=== PATIENT | female | born 1935 | race Caucasian/White ===

== ENCOUNTER → 2016-09-28 | Outpatient (CLI) | payer OTHER, BC ==
[~2016-09-28] MED LIST: AMLO2.5T PO; HYDR25TA4 PO; RMCI IV
[2016-10-02 15:33] LABS: QUANTIF TB AG-NIL <0.00 IU/ML; QUANTIFERON NIL 0.07 IU/ML
== END | disposition home or self-care (01) ==
LOC: C.LAB1850 11:31
PROVIDERS: ATTEND Registered Nurse
DX: K50.90 Crohn's disease, unspecified, without complications (principal)

== ENCOUNTER → 2016-12-13 | Outpatient (CLI) | payer OTHER, BC ==
--- NOTE | 2016-12-13 14:06 | DIAGNOSTIC IMAGING REPORT ---
TWO VIEW CHEST CLINICAL HISTORY: Dyspnea on exertion. FINDINGS: PA and lateral chest radiographs are compared to study dated 03/14/2013 and correlated with chest CT dated 12/03/2008. The heart is mildly enlarged and there is atherosclerotic calcification of the thoracic aorta. Emphysema and chronic interstitial thickening are similar to previous. Left basilar airspace opacities are typical for atelectasis. No airspace consolidation is seen to suggest pneumonia. Biapical scarring is observed. There is no pleural effusion or pneumothorax. The skeletal structures are osteopenic. The bony thorax appears intact. IMPRESSION: Cardiomegaly and emphysema with no active disease in the chest. Electronically signed by: Yong Turk M.D. 12/13/2016 2:04 PM Dictated Date/Time: 12/13/2016 2:03 PM
[2016-12-13 17:56] LABS: BASO % 0.3 %; BASO ABS # 0.03 K/uL (0-0.2); COMPLETE YES; EOS % 2.1 %; HEMATOCRIT 41.1 % (37-47); IG% 0.2 %; LYMPH % 40.8 %; LYMPH ABS # 3.77 K/uL (1.2-3.4); MEAN CELL VOLUME 87.1 fL (80-100); MEAN CORPUSCULAR HEMOGLOBIN 29.4 pg (25-34); MEAN CORPUSCULAR HGB CONC 33.8 g/dl (32-36); MEAN PLATELET VOLUME 10.5 fL (7.4-10.4); MONO % 7.8 %; NEUT % 48.8 %; PLATELET COUNT 211 K/uL (130-400); RED BLOOD COUNT 4.72 M/uL (4.2-5.4); WHITE BLOOD COUNT 9.23 K/uL (4.8-10.8)
[2016-12-13 18:10] LABS: ALT/SGPT 18 U/L (12-78); BLOOD UREA NITROGEN 22 mg/dl (7-18); BUN/CREATININE RATIO 23.6 (10-20); CARBON DIOXIDE 30 mmol/L (21-32); CHLORIDE 103 mmol/L (98-107); CREATININE 0.94 mg/dl (0.60-1.20); GLUCOSE 86 mg/dl (70-99); POTASSIUM 3.7 mmol/L (3.5-5.1); SODIUM 139 mmol/L (136-145)
[2016-12-13 18:13] LABS: ALB/GLOB RATIO 1.1 (0.9-2); ALKALINE PHOSPHATASE 64 U/L (45-117); AST/SGOT 19 U/L (15-37)
== END | disposition home or self-care (01) ==
LOC: C.LABPVFM 13:44
PROVIDERS: ATTEND Family Medicine
DX: R06.09 Other forms of dyspnea (principal); J43.9 Emphysema, unspecified

== ENCOUNTER → 2017-01-19 | Outpatient (CLI) | payer OTHER, BC ==
--- NOTE | 2017-01-19 14:56 | MAMMOGRAPHY REPORT ---
BILATERAL DIGITAL SCREENING MAMMOGRAM TOMOSYNTHESIS WITH CAD: 01/19/2017 CLINICAL HISTORY: Asymptomatic. Personal history of breast cancer. TECHNIQUE: Breast tomosynthesis in addition to standard 2D mammography was performed. Current study was also evaluated with a Computer Aided Detection (CAD) system. COMPARISON: Comparison is made to exams dated: 01/18/2016 mammogram, 01/13/2015 mammogram, 01/12/2014 mammogram, 01/09/2013 mammogram, 01/08/2012 mammogram, and 01/05/2011 mammogram - [facility]. BREAST COMPOSITION: The tissue of both breasts is heterogeneously dense, which may obscure small ma sses. FINDINGS: No suspicious masses, calcifications, or areas of architectural distortion are noted in e ither breast. There has been no significant interval change compared to prior exams. There are stab le post surgical changes in the right upper outer quadrant, including stable density and architectur al distortion at the lumpectomy bed. A linear scar marker denoted scar in the right upper outer elin ast. IMPRESSION: ACR BI-RADS CATEGORY 2: BENIGN There is no mammographic evidence of malignancy. A 1 year screening mammogram is recommended. The p atient will receive written notification of the results. Approximately 10% of breast cancers are not detected with mammography. A negative mammographic repor t should not delay biopsy if a clinically suggestive mass is present. Danna Mills M.D. /:01/19/2017 14:38:16 Emergency Department Physician: Kayli CROWDER(Carmelita)(Bob), [facility] letter sent: Normal 1/2 BI-RADS Code: ACR BI-RADS Category 2: Benign
== END | disposition home or self-care (01) ==
LOC: C.MAMM 09:29
PROVIDERS: ATTEND Family Medicine
DX: Z12.31 Encounter for screening mammogram for malignant neoplasm of breast (principal); Z85.3 Personal history of malignant neoplasm of breast

== ENCOUNTER → 2017-10-23 | Outpatient (CLI) | payer OTHER, BC ==
[2017-10-23 12:41] LABS: BASO % 0.1 %; BASO ABS # 0.01 K/uL (0-0.2); EOS % 3.9 %; EOS ABS # 0.27 K/uL (0-0.5); HEMATOCRIT 41.5 % (37-47); IG# 0.02 K/uL (0.00-0.02); LYMPH % 42.3 %; LYMPH ABS # 2.92 K/uL (1.2-3.4); MEAN CELL VOLUME 85.9 fL (80-100); MEAN CORPUSCULAR HGB CONC 33.7 g/dl (32-36); MEAN PLATELET VOLUME 10.1 fL (7.4-10.4); MONO % 7.8 %; MONO ABS # 0.54 K/uL (0.11-0.59); NEUT % 45.6 %; NEUT ABS # 3.15 K/uL (1.4-6.5); PLATELET COUNT 210 K/uL (130-400); RED CELL DISTRIBUTION WIDTH CV 13.9 % (11.5-14.5); RED CELL DISTRIBUTION WIDTH SD 43.8 fL (36.4-46.3); WHITE BLOOD COUNT 6.91 K/uL (4.8-10.8)
[2017-10-23 13:22] LABS: ALBUMIN 3.6 gm/dl (3.4-5.0); ALT/SGPT 17 U/L (12-78); AST/SGOT 15 U/L (15-37); BLOOD UREA NITROGEN 18 mg/dl (7-18); CALCIUM 9.1 mg/dl (8.5-10.1); CARBON DIOXIDE 30 mmol/L (21-32); CHOLESTEROL 232 mg/dl (0-200); CREATININE 0.91 mg/dl (0.60-1.20); GLUCOSE 92 mg/dl (70-99); POTASSIUM 3.3 mmol/L (3.5-5.1); SODIUM 139 mmol/L (136-145)
[2017-10-23 13:25] LABS: ALKALINE PHOSPHATASE 69 U/L (45-117); LDL CHOLESTEROL CALCULATED 156 mg/dl; TOTAL PROTEIN 7.2 gm/dl (6.4-8.2)
[2017-10-25 10:34] LABS: QUANTIF MITOGEN-NIL 6.38 IU/ML; QUANTIFERON NEGATIVE (NEGATIVE); QUANTIFERON NIL 0.04 IU/ML
== END | disposition home or self-care (01) ==
LOC: C.LABPVFM 08:38
PROVIDERS: ATTEND Family Medicine
DX: K50.90 Crohn's disease, unspecified, without complications (principal); I10 Essential (primary) hypertension; R06.09 Other forms of dyspnea; H11.30 Conjunctival hemorrhage, unspecified eye; E78.5 Hyperlipidemia, unspecified

== ENCOUNTER → 2017-12-14 | Outpatient (CLI) | payer OTHER, BC | END | disposition home or self-care (01) | LOC: C.LABPVFM 13:44 | PROVIDERS: ATTEND Family Medicine | DX: E87.6 Hypokalemia (principal) ==

== ENCOUNTER → 2018-01-22 | Outpatient (CLI) | payer OTHER, BC ==
--- NOTE | 2018-01-22 15:22 | MAMMOGRAPHY REPORT ---
BILATERAL DIGITAL SCREENING MAMMOGRAM TOMOSYNTHESIS WITH CAD: 01/22/2018 CLINICAL HISTORY: Asymptomatic. Personal history of breast cancer. TECHNIQUE: Breast tomosynthesis in addition to standard 2D mammography was performed. Current study was also evaluated with a Computer Aided Detection (CAD) system. COMPARISON: Comparison is made to exams dated: 01/19/2017 mammogram, 01/18/2016 mammogram, 01/13/2015 m ammogram, 01/12/2014 mammogram, 01/09/2013 mammogram, and 01/05/2011 mammogram - [facility]. BREAST COMPOSITION: The tissue of both breasts is heterogeneously dense, which may obscure small mas ses. FINDINGS: A linear scar marker overlies the upper outer posterior right breast. There is expected ar chitectural distortion at the site of prior lumpectomy, in the upper outer posterior right breast. N o new suspicious mass, architectural distortion or cluster of microcalcifications is seen. IMPRESSION: ACR BI-RADS CATEGORY 1: NEGATIVE There is no mammographic evidence of malignancy. A 1 year screening mammogram is recommended. The pa tient will receive written notification of the results. Approximately 10% of breast cancers are not detected with mammography. A negative mammographic report should not delay biopsy if a clinically suggestive mass is present. Alley Shrestha M.D. ay/:01/22/2018 13:31:14 [employer] Supervisor: Layla Main, [facility] letter sent: Normal 1/2 BI-RADS Code: ACR BI-RADS Category 1: Negative
== END | disposition home or self-care (01) ==
LOC: C.MAMM 09:20
PROVIDERS: ATTEND Family Medicine
DX: Z12.31 Encounter for screening mammogram for malignant neoplasm of breast (principal); Z85.3 Personal history of malignant neoplasm of breast

== ENCOUNTER → 2018-04-16 | Outpatient (CLI) | payer OTHER, BC ==
[2018-04-16 17:43] LABS: ALBUMIN 3.8 gm/dl (3.4-5.0); ALKALINE PHOSPHATASE 73 U/L (45-117); ALT/SGPT 18 U/L (12-78); AST/SGOT 23 U/L (15-37); BLOOD UREA NITROGEN 18 mg/dl (7-18); CARBON DIOXIDE 32 mmol/L (21-32); CHOLESTEROL 209 mg/dl (0-200); CREATININE 0.91 mg/dl (0.60-1.20); GLUCOSE 83 mg/dl (70-99); LDL CHOLESTEROL CALCULATED 133 mg/dl; POTASSIUM 3.5 mmol/L (3.5-5.1); SODIUM 138 mmol/L (136-145); TOTAL PROTEIN 7.6 gm/dl (6.4-8.2)
== END | disposition home or self-care (01) ==
LOC: C.LABPVFM 14:34
PROVIDERS: ATTEND Family Medicine
DX: I10 Essential (primary) hypertension (principal); E78.5 Hyperlipidemia, unspecified

== ENCOUNTER 2022-08-02 13:27 | Observation (INO) ==
[2022-08-02] MEDS ORDERED: SODIUM CHLORIDE 0.9% 500 ML IV ONE (13:56)
[2022-08-02] MEDS ORDERED: ALBUTEROL HFA 8 GM INHALER INH ONE (14:00)
[2022-08-02] MEDS ORDERED: ACETAMINOPHEN 1,000 MG/100 ML VIAL IV STA (14:00)
[2022-08-02] MEDS ORDERED: dexAMETHasone**PF** 10 MG/ML VIAL IV ONE (14:00)
[2022-08-02 14:35] LABS: Basophils # (auto) 0.03 K/uL (0-0.2); Basophils % (auto) 0.5 %; Eosinophils # (auto) 0.07 K/uL (0-0.50); Eosinophils % (auto) 1.1 %; Hemoglobin 12.4 g/dl (12.0-16.0); Immature Granulocytes # (auto) 0.05 K/uL (0.00-0.02); Immature Granulocytes % (auto) 0.8 %; Lymphocytes # (auto) 1.58 K/uL (1.2-3.4); Lymphocytes % (auto) 24.1 %; Mean Corpuscular Hemoglobin 29.5 pg (25.0-34.0); Mean Corpuscular Hgb Conc 34.4 g/dL (32.0-36.0); Mean Corpuscular Volume 85.5 fL (80.0-100.0); Mean Platelet Volume 9.2 fL (9.4-12.3); Monocytes # (auto) 0.72 K/uL (0.24-0.82); Neutrophils # (auto) 4.11 K/uL (1.4-6.5); Neutrophils % (auto) 62.5 %; Platelet Count 268 K/uL (130-400); RDW Standard Deviation 40.3 fL (36.4-46.3); Red Blood Count 4.21 M/uL (3.93-5.22); White Blood Count 6.56 K/ul (4.8-10.8)
--- NOTE | 2022-08-02 14:52 | XRay Report ---
XR chest 1V portable CLINICAL HISTORY: Chest Pain COMPARISON STUDY: Chest radiograph July 15, 2022. FINDINGS: There is no pneumothorax. Trace bilateral pleural effusions have developed since prior exam . In addition, multifocal bilateral midlung airspace opacities have developed, greater on the right. Cardiomegaly is unchanged. There is pulmonary vascular congestion without overt pulmonary edema. IMPRESSION: 1. Development of bilateral midlung opacities suggestive of an infectious process such as multifocal pneumonia. 2. Cardiomegaly. Trace bilateral pleural effusions. Pulmonary vascular congestion without overt pulmo nary edema. ACT 112: Negative or not required by law. Electronically signed by: Wilbert Santos M.D. 08/02/2022 2:50 PM
[2022-08-02 14:58] LABS: Albumin Globulin Ratio 0.9 (0.9-2); Albumin Level 3.1 gm/dl (3.4-5.0); BUN Creatinine Ratio 17.6 (10-20); Bilirubin,Total 0.8 mg/dl (0.2-1.0); Calcium 8.9 mg/dl (8.5-10.1); Creatinine Clr Calc Pharmacy 35.2 ml/min; Est GFR (African American) 71.4 ml/min; Est GFR (Non-African American) 61.6 ml/min; Globulin 3.4 gm/dl (2.5-4.0); Magnesium 1.9 mg/dl (1.7-2.4); Phosphorus 3.8 mg/dl (2.5-4.9); Potassium 3.9 mmol/L (3.5-5.1); Total Protein 6.5 gm/dl (6.0-8.3)
[2022-08-02 15:03] LABS: Troponin I High Sensitivity 22.7 pg/ml (0-14)
[2022-08-02] MEDS ORDERED: OPTIRAY 320 500ml IV ONE (16:12)
--- NOTE | 2022-08-02 16:25 | CT Scan Report ---
CT ANGIOGRAPHY OF THE CHEST, PULMONARY EMBOLUS PROTOCOL CLINICAL HISTORY: RIGHT sided CP, recent covid. Evaluate for pulmonary embolus. COMPARISON STUDY: Chest CT December 03, 2008 and chest radiograph performed earlier today. TECHNIQUE: Following IV administration of 110 mL of Optiray, helical axial images of the chest were o btained utilizing the pulmonary embolus protocol. Maximal intensity projections and sagittal and cor onal reformats were viewed on an independent 3D workstation. IV contrast was administered without co mplication. Automated exposure control was utilized for the study. A dose lowering technique was ut ilized adhering to the principles of ALARA. CT DOSE: 226.96 mGy.cm FINDINGS: There are a few small segmental and subsegmental pulmonary emboli within the bilateral low er lobes. No central pulmonary embolus is present. Cardiomegaly is noted with moderate coronary arter y calcification. There is no pericardial effusion. A small hiatal hernia is present. Trace right pleu ral effusion is noted. There is no pneumothorax. There is moderate emphysema. Moderate multifocal per ipheral predominant foci of consolidation are present. These are new since chest radiograph of Octobe r 2021. There is no cavitation. There is no thoracic lymphadenopathy. IMPRESSION: 1. A few small segmental and subsegmental pulmonary emboli within the bilateral lower lobes. 2. Multifocal airspace opacities throughout the lungs. These represent an infectious process and favo r viral pneumonia. A follow-up chest CT in 3 months to ensure resolution is recommended. 3. Trace right pleural effusion. 4. Emphysema. 5. Cardiomegaly. ACT 112: Negative or not required by law. Electronically signed by: Wilbert Santos M.D. 08/02/2022 4:23 PM
--- NOTE | 2022-08-02 16:58 | Electrocardiogram Report ---
Test Reason : Blood Pressure : / mmHG Vent. Rate : 097 BPM Atrial Rate : 097 BPM P-R Int : 178 ms QRS Dur : 130 ms QT Int : 406 ms P-R-T Axes : 059 -83 -06 degrees QTc Int : 515 ms Poor data quality, interpretation may be adversely affected Normal sinus rhythm with sinus arrhythmia Possible Left atrial enlargement Right bundle branch block Left anterior fascicular block Bifascicular block Inferior infarct (cited on or before 02-AUG-2022) Abnormal ECG When compared with ECG of 13-JUL-2022 09:06, Borderline criteria for Lateral infarct are no longer Present QT has lengthened Confirmed by Suhail Roach ([id number]) on 08/02/2022 4:57:58 PM Referred By: REFERRED SELF Confirmed By:Suhail Roach
--- NOTE | 2022-08-02 17:15 | History & Physical Report ---
Date of Service August 02, 2022 Assessment & Plan (1) Pulmonary emboli: Plan: Acute pulmonary embolism In the setting of recent COVID - CTA: 1. A few small segmental and subsegmental pulmonary emboli within the bilateral lower lobes. 2. Multifocal airspace opacities throughout the lungs. These represent an infectious process and favor viral pneumonia. A follow-up chest CT in 3 months to ensure resolution is recommended. 3. Trace right pleural effusion. 4. Emphysema. 5. Cardiomegaly. Renal function normal at baseline, creatinine 0.85 on admission. BMI 56 kg Troponin 22.7, BNP is normal, no EKG changes. Echo pending. No transaminitis We will start on DOAC therapy - Mildly tachycardic suspect reactive to PEs No leukocytosis. Procalcitonin pending. Patient is without cough/sputum production/leukocytosis/fever. Suspect symptoms are 2/2 acute PA with residual CT changes from viral pneumonia/COVID. If worsening respiratory status, fevers develop, or Pro-Amador is elevated will add empiric coverage for multifocal - O2 goal >90% - Eliquis 10mg BID x7 days THEN 5mg BID for at least 3 months - No FHx of blood clodts. suspect provoked post COVID. Hypertension Continue amlodipine 5 mg daily Continue hydrochlorothiazide 25 mg daily History of Crohn's disease Stable on Remicade - If concern for superimposed pna on followup hold. Had last dose 08/01/2022 DVT prophylaxis: Anticoagulated Diet: Regular Disposition: Medical/surgical with telemetry CODE STATUS: Full code (2) Crohns disease: (3) Ex-smoker: (4) Anxiety: History of Present Illness Primary Care Provider: Haley Conteh MD Marily is an 87yo F referred by her PCP for shortness of breath and cough sicne COVID several days ago, found to have PEs on imaging with superimposed mul tifocal PNA unclear if remant from COVID. Trop mildly elevated, EKG without ischemic findings and BMP normal. Reports sx of shortness of breath, mild, for several weeks. Thougth she might have had a sinus infection and was on abx. 2-3 weeks ago was having a persistent cough and shortness of breath and was seen for a f/u and was given steroids, told she had COVID 07/13/22, but was not hypoxic and could be d/malaika home. Recently her cough seemed to worsen in the last few days due to continued cough, racing heart, and was concerned about pneumonia. O2 at outpatient office was low so came to the ER. No fevers, chills, or sweats +SoB and dry cough. Cough is nonproductive. Hasn't chagned much since covid. Intermittent headache since covid none at admission. Last remicade yesterday for Crohns. Medical History: Reviewed Medications: Reviewed Surgical History: Reviewed Allergies: Reviewed Social History: Quit tobacco 30 years ago. Drinks wine occasionally, none since May due to COVID. Code Status: Surrogate DM would be daughter Juliette Kim daughter [phone] or sister Shelli Garcia [phone]. Allergies Allergy/AdvReac Type Severity Reaction Status Date / Time losartan Allergy Intermediate RASH Verified 08/02/22 11:01 adhesive Allergy Mild SKIN Verified 08/02/22 11:01 IRRITATION Sulfa (Sulfonamide Allergy Unknown "CAN'T Verified 08/02/22 11:01 Antibiotics) REMEMBER" doxycycline Allergy nausea Verified 08/02/22 11:01 Home Medications Medication Instructions Recorded Confirmed Type infliximab 100 mg intravenous See Rx Instructions IV .COMPLEX 07/29/19 08/02/22 History solution (Remicade) potassium chloride 20 mEq 40 meq PO ONCE #2 tabs 09/09/21 08/02/22 Rx tablet,extended release amlodipine 5 mg tablet 5 mg PO QPM #90 tabs 03/08/22 08/02/22 Rx hydrochlorothiazide 25 mg tablet 25 mg PO DAILY #90 tabs 03/08/22 08/02/22 Rx ProAir HFA 90 mcg/actuation 2 inh inhalation Q6H PRN shortness 07/13/22 08/02/22 Rx aerosol inhaler (albuterol sulfate) of breath or wheezing #8.5 grams Past Med/Surg History Medical History Crohn's colitis Osteoarthritis Temporomandibular joint disorder Uterine fibroid Surgical History H/O breast biopsy RT SIDE H/O: hysterectomy History of cataract surgery RT/LEFT History of colonoscopy History of tooth extraction Family History Father Family history of diabetes mellitus Denies family history of Ovarian cancer Prostate cancer Myocardial infarction Breast cancer Colorectal cancer Social History Smoking Status: Former smoker Tobacco Type: Cigarettes Cigarettes Per Day: QUIT "A LONG TIME AGO"; Second Hand Exposure: No; Hx Alcohol Use: Yes Alcohol type: wine Alcohol Intake Frequency: Monthly or Less Hx Substance Use: No Preferred Language: Andorran Communication Ability: Effective Visual Impairment: No Limitations Hearing Ability: Use of Hearing Aid Card Checker Required: No Beliefs That Will Affect Care: None marital status: Current Living Situation: Spouse current occupational status: retired How many Children do You have: 2 Feels Safe at Home: Yes Childhood Exposure to Second-Hand Smoke: Yes caffeine: Yes (coffee and tea ) Dental Care, Regularly: No Physical Activity Frequency: Daily Seatbelt Use: always Sunscreen Use: Yes Assistive Devices: Glasses and Hearing Aid - Bilateral Review of Systems Review of Systems: All systems reviewed & are unremarkable except as noted in HPI & below Physical Exam Physical Exam: General: A&Ox3. NAD. Cooperative. HEENT: Atraumatic, normocephalic. PERLAA. EoM intact. [place] Pulm: CTAB A&P. -wheezes, -rales, -rhonchi. Symmetrical chest rise. No increased work of breathing. No respiratory distress. Cardiac: RRR, -mrg. Radial pulses intact and symmetrical. Abdominal: Nontender, nondistended, soft. BS present. Ext: No LE edema. Moves LE and UE equally, glued wood tester strength intact. Sensation in hands and feet intact. Results & Data Results & Data ([facility]) Vital Signs (Past 12 Hours) Vital Signs Temp Pulse Pulse Resp BP BP Pulse Ox 08/02/22 16:23 104 H 22 144/87 H 94 08/02/22 15:38 86 18 134/57 L 93 08/02/22 13:30 36.8 C 98 H 18 150/76 H 95 O2 Del Method 08/02/22 16:23 Room Air 08/02/22 15:38 08/02/22 13:30 Room Air PG Care Time/CCT Total # of Minutes Spent Total Time Spent with Patient: Total time spent is greater than 50% in coordination of care (as documented) at patient's floor/unit and/or counseling patient: Coding Level of Care Code 04617 Initial Inpt Care Lvl 2 Diagnoses Pulmonary emboli I26.99 Crohns disease K50.90 Ex-smoker Z87.891 Anxiety F41.9
[2022-08-02 17:39] LABS: INR 1.1 (0.9-1.1); Partial Thromboplastin Ratio 0.7; Prothrombin Time 11.5 Seconds (9.0-12.0)
[2022-08-02 17:59] LABS: Partial Thromboplastin Time < 20.0 Seconds (21.0-31.0)
--- NOTE | 2022-08-02 18:32 | Emergency Department Note ---
Impression & Plan Pulmonary embolism, Elevated troponin, History of COVID-19, Pleuritic chest pain ED Provider Note NAME: BERTIN REDD AGE: 87 SEX: F ARRIVES VIA: Ambulance INFORMANT: Patient ED PROVIDER(S): Eduardo Prince MD CHIEF COMPLAINT: SOB, cough, CP, referral PLAN: Disposition: Admit MEDICAL DECISION MAKING: The patient is a pleasant 87-year-old woman with a past medical history of hypertension, Crohn's disease, recent history of COVID-19 several weeks ago who presents to the emergency department referred by her PCPs office for evaluation of ongoing right-sided chest pain worse with coughing and deep breaths with persistence of her cough from her COVID-19 illness. She was treated with dexamethasone. The patient denies feeling her cough is worse and but reports it has been slow to improve. She denies any recent fevers. She denies any nausea, vomiting, diarrhea or urinary symptoms. On arrival the patient is in no acute distress, afebrile with heart in the 100s and vital signs otherwise stable. Her O2 saturation is 91% and greater on room air. Lungs with scant intermittent wheezes and otherwise clear. She has reproducible right anterior chest wall discomfort without bony crepitus. EKG without overt acute ischemia. CXR suggestive of multifocal pneumonia. WBC, H/H and platelets within normal limits. Chemistry without metabolic acidos is. Electrolytes and LFTs unremarkable. High-sensitivity troponin 22.7, nonspecific. BNP wnl. Lipase wnl. CT of the chest was performed and demonstrates a few small segmental and subsegmental pulmonary emboli within bilateral lower lobes. Additional note is made of multifocal airspace opacities throughout the lungs. Trace right pleural effusion is seen. Evidence of emphysema in the setting of prior smoking history is noted. Upon reevaluation patient did report feeling some improvement after IV fluid hydration, APAP, dexamethasone and albuterol MDI. Findings were reviewed with her and she did agree with plan for admission. She denies any history of GI bleeding or bleeding otherwise. A procalcitonin was ordered and is pending to help characterize pneumonia on imaging which may represent new pneumonia versus residual findings from her recent COVID-19 infection. Case was discussed with Dr. Katz, [facility] hospitalist, who will evaluate the patient for admission. Anticoagulation per admitting team. Anticoagulation per admitting team. Triage Nursing notes reviewed and agree them. Prior medical records reviewed Differential diagnosis: Reactive airway disease, pneumonia, pneumothorax, COPD, CHF, infections, cardiac ischemia, pulmonary embolism, musculoskeletal, gastrointestinal, as well as other pathologies. ER treatment provided: See below. Diagnostics interpreted by me: ECG: Normal sinus rhythm with sinus arrhythmia, 97 bpm, right bundle branch b lock, left anterior fascicular block, no overt ST elevation. QTc 515, QRS 130. Cardiac Monitoring: An order for continuous cardiac monitoring was placed and demonstrated Normal sinus rhythm with sinus arrhythmia, 97 bpm, no ectopy. Laboratory studies: See below Imaging studies: See below Consultation(s): Case was discussed with Dr. Katz, [facility] hospitalist, who will evaluate the patient for admission. HPI: The patient is a pleasant 87-year-old woman with a past medical history of hypertension, Crohn's disease, recent history of COVID-19 several weeks ago who presents to the emergency department referred by her PCPs office for evaluation of ongoing right-sided chest pain worse with coughing and deep breaths with persistence of her cough from her COVID-19 illness. She was treated with dexamethasone. The patient denies feeling her cough is worse and but reports it has been slow to improve. She denies any recent fevers. She denies any nausea, vomiting, diarrhea or urinary symptoms. ROS: See above HPI for pertinent positives & negatives. A total of 10 systems reviewed and were otherwise negative. VITALS:See Below PHYSICAL EXAMINATION: GENERAL: Awake, alert, fatigued-appearing, in no distress HENT: Normocephalic, atraumatic. Oropharynx with dry mucous membranes and otherwise unremarkable. EYES: Normal conjunctiva. Sclera non-icteric. NECK: Supple. No nuchal rigidity. FROM. No JVD. RESPIRATORY: Lungs with scant intermittent wheezes and otherwise clear. CARDIAC: Tachycardic rate, normal rhythm. Extremities warm and well perfused. Pulses equal. ABDOMEN: Soft, non-distended. No tenderness to palpation. No rebound or guarding. No masses. RECTAL: Deferred. MUSCULOSKELETAL: Chest examination reveals reproducible right anterior chest wall discomfort without bony crepitus. The back is symmetrical on inspection without obvious abnormality. There is no CVA tenderness to palpation. No joint edema. LOWER EXTREMITIES: Calves are equal size bilaterally and non-tender. No edema. No discoloration. NEURO: Normal sensorium. No sensory or motor deficits noted. SKIN: No rash or jaundice noted. ED COURSE: Critical Care: I have personally spent greater than 35 minutes of critical care time in the direct management of this patient. This includes bedside care, interpretation of diagnostic studies, and testing, discussion with consultants, patient, and family members, and other required patient management activities. This 35 minutes is in excess of all separately billable procedures. Eduardo Prince MD Past Med/Surg History Medical History (Updated 08/02/22 @ 23:31 by Eduardo Prince MD) Crohn's colitis Osteoarthritis Temporomandibular joint disorder Uterine fibroid Surgical History H/O breast biopsy RT SIDE H/O: hysterectomy History of cataract surgery RT/LEFT History of colonoscopy History of tooth extraction Family History Father Family history of diabetes mellitus Denies family history of Ovarian cancer Prostate cancer Myocardial infarction Breast cancer Colorectal cancer Social History Smoking Status: Former smoker Tobacco Type: Cigarettes Cigarettes Per Day: QUIT "A LONG TIME AGO"; Second Hand Exposure: No; Hx Alcohol Use: Yes Alcohol type: wine Alcohol Intake Frequency: Monthly or Less Hx Substance Use: No Preferred Language: Estonian Communication Ability: Effective Visual Impairment: No Limitations Hearing Ability: Use of Hearing Aid Infant Lead Teacher Required: No Beliefs That Will Affect Care: None marital status: Current Living Situation: Alone current occupational status: retired How many Children do You have: 2 Other Information That Helps Us Care for You: No Feels Safe at Home: Yes Safety Concerns: Feels Safe At This Time Childhood Exposure to Second-Hand Smoke: Yes caffeine: Yes (coffee and tea ) Dental Care, Regularly: No Physical Activity Frequency: Daily Seatbelt Use: always Sunscreen Use: Yes Assistive Devices: Glasses and Hearing Aid - Bilateral Allergies Allergies Allergy/AdvReac Type Severity Reaction Status Date / Time losartan Allergy Intermediate RASH Verified 08/02/22 11:01 adhesive Allergy Mild SKIN Verified 08/02/22 11:01 IRRITATION Sulfa (Sulfonamide Allergy Unknown "CAN'T Verified 08/02/22 11:01 Antibiotics) REMEMBER" doxycycline Allergy nausea Verified 08/02/22 11:01 Home Meds Home Medications Medication Instructions Recorded Confirmed infliximab 100 mg intravenous See Rx Instructions IV .COMPLEX 07/29/19 08/02/22 solution (Remicade) Previous Rx's Medication Instructions Recorded potassium chloride 20 mEq 40 meq PO ONCE #2 tabs 09/09/21 tablet,extended release amlodipine 5 mg tablet 5 mg PO QPM #90 tabs 03/08/22 hydrochlorothiazide 25 mg tablet 25 mg PO DAILY #90 tabs 03/08/22 ProAir HFA 90 mcg/actuation 2 inh inhalation Q6H PRN shortness 07/13/22 aerosol inhaler (albuterol sulfate) of breath or wheezing #8.5 grams Results & Data (ED) Vital Signs Vital Signs - 24 hr 08/02/22 13:30 08/02/22 15:38 08/02/22 16:23 Temperature 36.8 C Temperature Source Oral Pulse Rate 98 H Pulse Rate [Finger] 86 104 H Pulse Rate from SpO2 Sensor Pulse Rhythm Regular Pulse Rhythm [Finger] Regular Regular Pulse Strength Normal Pulse Strength [Finger] Normal Normal Respiratory Rate 18 18 22 Respiratory Effort / Characteristics Non-Labored Non-Labored Spontaneous Non-Labored Respiratory Depth Normal Normal Respiratory Pattern Regular Blood Pressure 150/76 H Blood Pressure [Left Arm] 134/57 L 144/87 H Blood Pressure Mean 100 Blood Pressure Mean [Left Arm] 82 106 Blood Pressure Position Sitting Pulse Oximetry 95 93 94 Oxygen Delivery Method Room Air Room Air Sepsis Recent Fever Within 48 Hours No Sepsis New/Unexplained Change in Mental Status No Sepsis Action Taken by Nursing No Action Required 08/02/22 13:37 08/02/22 13:45 08/02/22 14:00 Temperature Temperature Source Pulse Rate 106 H 92 H Pulse Rate [Finger] Pulse Rate from SpO2 Sensor 95 H 93 H Pulse Rhythm Pulse Rhythm [Finger] Pulse Strength Pulse Strength [Finger] Respiratory Rate 19 19 Respiratory Effort / Characteristics Respiratory Depth Respiratory Pattern Blood Pressure 144/90 H Blood Pressure [Left Arm] Blood Pressure Mean 108 Blood Pressure Mean [Left Arm] Blood Pressure Position Pulse Oximetry 91 90 Oxygen Delivery Method Sepsis Recent Fever Within 48 Hours Sepsis New/Unexplained Change in Mental Status Sepsis Action Taken by Nursing 08/02/22 14:00 08/02/22 14:15 08/02/22 14:30 Temperature Temperature Source Pulse Rate 91 H 88 Pulse Rate [Finger] Pulse Rate from SpO2 Sensor 89 88 Pulse Rhythm Pulse Rhythm [Finger] Pulse Strength Pulse Strength [Finger] Respiratory Rate 21 21 Respiratory Effort / Characteristics Respiratory Depth Respiratory Pattern Blood Pressure 175/81 H Blood Pressure [Left Arm] Blood Pressure Mean 112 Blood Pressure Mean [Left Arm] Blood Pressure Position Pulse Oximetry 93 92 Oxygen Delivery Method Sepsis Recent Fever Within 48 Hours Sepsis New/Unexplained Change in Mental Status Sepsis Action Taken by Nursing 08/02/22 14:30 08/02/22 14:45 08/02/22 15:00 Temperature Temperature Source Pulse Rate 91 H 84 Pulse Rate [Finger] Pulse Rate from SpO2 Sensor 90 85 Pulse Rhythm Pulse Rhythm [Finger] Pulse Strength Pulse Strength [Finger] Respiratory Rate 24 24 Respiratory Effort / Characteristics Respiratory Depth Respiratory Pattern Blood Pressure 145/62 H Blood Pressure [Left Arm] Blood Pressure Mean 89 Blood Pressure Mean [Left Arm] Blood Pressure Position Pulse Oximetry 93 92 Oxygen Delivery Method Sepsis Recent Fever Within 48 Hours Sepsis New/Unexplained Change in Mental Status Sepsis Action Taken by Nursing 08/02/22 15:00 08/02/22 15:15 08/02/22 15:30 Temperature Temperature Source Pulse Rate 88 88 Pulse Rate [Finger] Pulse Rate from SpO2 Sensor 87 89 Pulse Rhythm Pulse Rhythm [Finger] Pulse Strength Pulse Strength [Finger] Respiratory Rate 22 21 Respiratory Effort / Characteristics Respiratory Depth Respiratory Pattern Blood Pressure 134/57 L Blood Pressure [Left Arm] Blood Pressure Mean 82 Blood Pressure Mean [Left Arm] Blood Pressure Position Pulse Oximetry 92 92 Oxygen Delivery Method Sepsis Recent Fever Within 48 Hours Sepsis New/Unexplained Change in Mental Status Sepsis Action Taken by Nursing 08/02/22 15:30 08/02/22 15:45 08/02/22 16:20 Temperature Temperature Source Pulse Rate 87 86 114 H Pulse Rate [Finger] Pulse Rate from SpO2 Sensor 87 86 116 H Pulse Rhythm Pulse Rhythm [Finger] Pulse Strength Pulse Strength [Finger] Respiratory Rate 22 24 20 Respiratory Effort / Characteristics Respiratory Depth Respiratory Pattern Blood Pressure Blood Pressure [Left Arm] Blood Pressure Mean Blood Pressure Mean [Left Arm] Blood Pressure Position Pulse Oximetry 91 91 92 Oxygen Delivery Method Sepsis Recent Fever Within 48 Hours Sepsis New/Unexplained Change in Mental Status Sepsis Action Taken by Nursing 08/02/22 16:22 08/02/22 16:22 08/02/22 16:30 Temperature Temperature Source Pulse Rate 105 H 95 H Pulse Rate [Finger] Pulse Rate from SpO2 Sensor 105 H 95 H Pulse Rhythm Pulse Rhythm [Finger] Pulse Strength Pulse Strength [Finger] Respiratory Rate 18 20 Respiratory Effort / Characteristics Respiratory Depth Respiratory Pattern Blood Pressure 144/87 H Blood Pressure [Left Arm] Blood Pressure Mean 106 Blood Pressure Mean [Left Arm] Blood Pressure Position Pulse Oximetry 97 94 Oxygen Delivery Method Sepsis Recent Fever Within 48 Hours Sepsis New/Unexplained Change in Mental Status Sepsis Action Taken by Nursing 08/02/22 16:45 08/02/22 17:00 08/02/22 17:01 Temperature Temperature Source Pulse Rate 90 101 H 102 H Pulse Rate [Finger] Pulse Rate from SpO2 Sensor 91 H 101 H 101 H Pulse Rhythm Pulse Rhythm [Finger] Pulse Strength Pulse Strength [Finger] Respiratory Rate 20 19 21 Respiratory Effort / Characteristics Respiratory Depth Respiratory Pattern Blood Pressure Blood Pressure [Left Arm] Blood Pressure Mean Blood Pressure Mean [Left Arm] Blood Pressure Position Pulse Oximetry 93 95 95 Oxygen Delivery Method Sepsis Recent Fever Within 48 Hours Sepsis New/Unexplained Change in Mental Status Sepsis Action Taken by Nursing 08/02/22 17:01 08/02/22 17:15 08/02/22 17:30 Temperature Temperature Source Pulse Rate 100 H 101 H Pulse Rate [Finger] Pulse Rate from SpO2 Sensor 99 H 101 H Pulse Rhythm Pulse Rhythm [Finger] Pulse Strength Pulse Strength [Finger] Respiratory Rate 21 24 Respiratory Effort / Characteristics Respiratory Depth Respiratory Pattern Blood Pressure 173/88 H Blood Pressure [Left Arm] Blood Pressure Mean 116 Blood Pressure Mean [Left Arm] Blood Pressure Position Pulse Oximetry 95 94 Oxygen Delivery Method Sepsis Recent Fever Within 48 Hours Sepsis New/Unexplained Change in Mental Status Sepsis Action Taken by Nursing Laboratory Data Attestation: I reviewed the patient's lab results. Result diagrams: 08/02/22 14:21 08/02/22 14:21 Lab Results 08/02/22 08/02/22 08/02/22 Range/Units 14:21 14:21 14:21 WBC 6.56 (4.8-10.8) K/ul RBC 4.21 (3.93-5.22) M/uL Hgb 12.4 (12.0-16.0) g/dl Hct 36.0 (34.1-44.9) % MCV 85.5 (80.0-100.0) fL MCH 29.5 (25.0-34.0) pg MCHC 34.4 (32.0-36.0) g/dL RDW Std Deviation 40.3 (36.4-46.3) fL RDW Coeff of Renetta 13.0 (11.5-14.5) % Plt Count 268 (130-400) K/uL MPV 9.2 L (9.4-12.3) fL Immature Gran % (Auto) 0.8 % Neut % (Auto) 62.5 % Lymph % (Auto) 24.1 % [place] % (Auto) 11.0 % Eos % (Auto) 1.1 % Baso % (Auto) 0.5 % Neut # (Auto) 4.11 (1.4-6.5) K/uL Lymph # (Auto) 1.58 (1.2-3.4) K/uL [place] # (Auto) 0.72 (0.24-0.82) K/uL Eos # (Auto) 0.07 (0-0.50) K/uL Baso # (Auto) 0.03 (0-0.2) K/uL Immature Gran # (Auto) 0.05 H (0.00-0.02) K/uL PT (9.0-12.0) Seconds INR (0.9-1.1) APTT (21.0-31.0) Seconds PTT Ratio Sodium 139 (136-145) mmol/L Potassium 3.9 (3.5-5.1) mmol/L Chloride 104 (98-107) mmol/L Carbon Dioxide 27 (21-32) mmol/L Anion Gap 8 (3-11) BUN 15 (6-23) mg/dl Creatinine 0.85 (0.6-1.2) mg/dl Est Cr Clr Drug Dosing 35.2 ml/min Est GFR ( Amer) 71.4 ml/min Est GFR (Non-Af Amer) 61.6 ml/min BUN/Creatinine Ratio 17.6 (10-20) Glucose 87 (70-99(Fasting)) mg/dl Calcium 8.9 (8.5-10.1) mg/dl Phosphorus 3.8 (2.5-4.9) mg/dl Magnesium 1.9 (1.7-2.4) mg/dl Total Bilirubin 0.8 (0.2-1.0) mg/dl AST 18 (13-39) U/L ALT 9 (7-52) U/L Alkaline Phosphatase 61 (34-104) U/L Troponin I High Sens 22.7 H (0-14) pg/ml B-Natriuretic Peptide 55 (0-100) pg/ml Total Protein 6.5 (6.0-8.3) gm/dl Albumin 3.1 L (3.4-5.0) gm/dl Globulin 3.4 (2.5-4.0) gm/dl Albumin/Globulin Ratio 0.9 (0.9-2) Lipase 8 L (11-82) U/L 08/02/22 Range/Units 16:36 WBC (4.8-10.8) K/ul RBC (3.93-5.22) M/uL Hgb (12.0-16.0) g/dl Hct (34.1-44.9) % MCV (80.0-100.0) fL MCH (25.0-34.0) pg MCHC (32.0-36.0) g/dL RDW Std Deviation (36.4-46.3) fL RDW Coeff of Renetta (11.5-14.5) % Plt Count (130-400) K/uL MPV (9.4-12.3) fL Immature Gran % (Auto) % Neut % (Auto) % Lymph % (Auto) % [place] % (Auto) % Eos % (Auto) % Baso % (Auto) % Neut # (Auto) (1.4-6.5) K/uL Lymph # (Auto) (1.2-3.4) K/uL [place] # (Auto) (0.24-0.82) K/uL Eos # (Auto) (0-0.50) K/uL Baso # (Auto) (0-0.2) K/uL Immature Gran # (Auto) (0.00-0.02) K/uL PT 11.5 (9.0-12.0) Seconds INR 1.1 (0.9-1.1) APTT < 20.0 L (21.0-31.0) Seconds PTT Ratio 0.7 Sodium (136-145) mmol/L Potassium (3.5-5.1) mmol/L Chloride (98-107) mmol/L Carbon Dioxide (21-32) mmol/L Anion Gap (3-11) BUN (6-23) mg/dl Creatinine (0.6-1.2) mg/dl Est Cr Clr Drug Dosing ml/min Est GFR ( Amer) ml/min Est GFR (Non-Af Amer) ml/min BUN/Creatinine Ratio (10-20) Glucose (70-99(Fasting)) mg/dl Calcium (8.5-10.1) mg/dl Phosphorus (2.5-4.9) mg/dl Magnesium (1.7-2.4) mg/dl Total Bilirubin (0.2-1.0) mg/dl AST (13-39) U/L ALT (7-52) U/L Alkaline Phosphatase (34-104) U/L Troponin I High Sens (0-14) pg/ml B-Natriuretic Peptide (0-100) pg/ml Total Protein (6.0-8.3) gm/dl Albumin (3.4-5.0) gm/dl Globulin (2.5-4.0) gm/dl Albumin/Globulin Ratio (0.9-2) Lipase (11-82) U/L Administered Medications Amlodipine Besylate (Amlodipine Besylate 5 Mg Tab) 5 mg PO QPM KERI Stop: 09/01/22 20:59 Last Admin: 08/02/22 21:29 Dose: 5 mg Documented By: MADISON Apixaban (Apixaban 5 Mg Tablet) 10 mg PO BID KERI Stop: 08/09/22 09:01 Last Admin: 08/02/22 19:22 Dose: 10 mg Documented By: RENU Discontinued Medications Albuterol (Albuterol Hfa 8 Gm Inhaler) 2 puffs INH NOW ONE Stop: 08/02/22 14:01 Last Admin: 08/02/22 14:21 Dose: 2 puffs Documented By: TESFAYE Dexamethasone Sodium Phosphate (DexamethasonePf 10 Mg/Ml Vial) 10 mg IV NOW ONE Stop: 08/02/22 14:01 Last Admin: 08/02/22 14:21 Dose: 10 mg Documented By: TESFAYE Sodium Chloride (Nss) 500 mls @ 999 mls/hr IV .Q31M ONE Stop: 08/02/22 14:26 Last Infusion: 08/02/22 15:44 Dose: 0 mls/hr Documented By: Admin: 08/02/22 14:21 Dose: 999 mls/hr Documented By: TESFAYE Acetaminophen (Ofirmev) 1,000 mg in 100 mls @ 400 mls/hr IV NOW STA Stop: 08/02/22 14:14 Last Infusion: 08/02/22 14:37 Dose: 0 mls/hr Documented By: Admin: 08/02/22 14:20 Dose: 400 mls/hr Documented By: TESFAYE Ioversol (Optiray 320 500ml) 110 ml IV ONCE ONE Stop: 08/02/22 16:13 Last Admin: 08/02/22 16:13 Dose: 110 ml Documented By: [facility] Imaging Data Radiologist's Impression: Chest X-Ray 08/02/22 13:58 XR chest 1V portable CLINICAL HISTORY: Chest Pain COMPARISON STUDY: Chest radiograph July 15, 2022. FINDINGS: There is no pneumothorax. Trace bilateral pleural effusions have developed since prior exam. In addition, multifocal bilateral midlung airspace opacities have developed, greater on the right. Cardiomegaly is unchanged. There is pulmonary vascular congestion without overt pulmonary edema. IMPRESSION: 1. Development of bilateral midlung opacities suggestive of an infectious process such as multifocal pneumonia. 2. Cardiomegaly. Trace bilateral pleural effusions. Pulmonary vascular congestion without overt pulmonary edema. ACT 112: Negative or not required by law. Electronically signed by: Wilbert Santos M.D. 08/02/2022 2:50 PM Chest CTA 08/02/22 13:59 CT ANGIOGRAPHY OF THE CHEST, PULMONARY EMBOLUS PROTOCOL CLINICAL HISTORY: RIGHT sided CP, recent covid. Evaluate for pulmonary embolus. COMPARISON STUDY: Chest CT December 03, 2008 and chest radiograph performed earlier today. TECHNIQUE: Following IV administration of 110 mL of Optiray, helical axial images of the chest were obtained utilizing the pulmonary embolus protocol. Maximal intensity projections and sagittal and coronal reformats were viewed on an independent 3D workstation. IV contrast was administered without complication. Automated exposure control was utilized for the study. A dose lowering technique was utilized adhering to the principles of ALARA. CT DOSE: 226.96 mGy.cm FINDINGS: There are a few small segmental and subsegmental pulmonary emboli within the bilateral lower lobes. No central pulmonary embolus is present. Cardiomegaly is noted with moderate coronary artery calcification. There is no pericardial effusion. A small hiatal hernia is present. Trace right pleural effusion is noted. There is no pneumothorax. There is moderate emphysema. Moderate multifocal peripheral predominant foci of consolidation are present. These are new since chest radiograph of July 13, 2022. There is no cavitation . There is no thoracic lymphadenopathy. IMPRESSION: 1. A few small segmental and subsegmental pulmonary emboli within the bilateral lower lobes. 2. Multifocal airspace opacities throughout the lungs. These represent an i nfectious process and favor viral pneumonia. A follow-up chest CT in 3 months to ensure resolution is recommended. 3. Trace right pleural effusion. 4. Emphysema. 5. Cardiomegaly. ACT 112: Negative or not required by law. Electronically signed by: Wilbert Santos M.D. 08/02/2022 4:23 PM Discharge Plan Visit Data Chief Complaint: Cough Stated Complaint: SOB ED Provider: Eduardo Prince Discharge Problem: Pulmonary embolism, Elevated troponin, History of COVID-19, Pleuritic chest pain Patient Disposition: Admitted As Inpatient Discharge Instructions Interventions: ED Discharge Assessment Last Done: 08/02/22 19:51
[2022-08-02] MEDS: APIXABAN 5 MG TABLET PO SCH (19:22)
[2022-08-02] MEDS ORDERED: ACETAMINOPHEN 325 MG TAB PO PRN (20:49)
[2022-08-02] MEDS ORDERED: ONDANSETRON INJ 2 MG/ML 2 ML VIAL IV PRN (20:49)
[2022-08-02] MEDS ORDERED: POLYETHYLENE (MIRALAX) 17 GM PACK PO PRN (20:49)
[2022-08-02] MEDS ORDERED: ALBUTEROL HFA 8 GM INHALER INH PRN (20:49)
[2022-08-02] MEDS ORDERED: amLODIPine BESYLATE 5 MG TAB PO SCH (21:00)
[2022-08-03] MEDS ORDERED: hydroCHLOROthiazide 25 MG TAB PO SCH (09:00)
[2022-08-03 09:34] LABS: Troponin I High Sensitivity 19.5 pg/ml (0-14)
[2022-08-03 10:11] LABS: BUN Creatinine Ratio 24.7 (10-20); C Reactive Protein 4.91 mg/dl (0-0.5); Calcium 9.2 mg/dl (8.5-10.1); Creatinine Clr Calc Pharmacy 38.8 ml/min; Est GFR (African American) 80.5 ml/min; Est GFR (Non-African American) 69.4 ml/min; Potassium 3.4 mmol/L (3.5-5.1)
[2022-08-03 10:14] LABS: Mean Corpuscular Hemoglobin 29.3 pg (25.0-34.0); Mean Corpuscular Hgb Conc 34.2 g/dL (32.0-36.0); Mean Corpuscular Volume 85.6 fL (80.0-100.0); Mean Platelet Volume 9.6 fL (9.4-12.3); Platelet Count 324 K/uL (130-400); RDW Coefficient of Variation 13.2 % (11.5-14.5); RDW Standard Deviation 40.5 fL (36.4-46.3); Red Blood Count 4.44 M/uL (3.93-5.22); White Blood Count 5.64 K/ul (4.8-10.8)
[2022-08-03] MEDS: APIXABAN 5 MG TABLET PO SCH (10:34)
[2022-08-03] MEDS ORDERED: POTASSIUM CHLORIDE CRTAB 20 MEQ TABCR PO STA (10:43)
--- NOTE | 2022-08-03 11:13 | Discharge Summary ---
Date of Service August 03, 2022 Admission HPI Per Admitting Provider Marily is an 87yo F referred by her PCP for shortness of breath and cough sicne COVID several days ago, found to have PEs on imaging with superimposed multifocal PNA unclear if remant from COVID. Trop mildly elevated, EKG without ischemic findings and BMP normal. Reports sx of shortness of breath, mild, for several weeks. Thougth she might have had a sinus infection and was on abx. 2-3 weeks ago was having a persistent cough and shortness of breath and was seen for a f/u and was given steroids, told she had COVID 07/13/22, but was not hypoxic and could be d/malaika home. Recently her cough seemed to worsen in the last few days due to continued cough, racing heart, and was concerned about pneumonia. O2 at outpatient office was low so came to the ER. No fevers, chills, or sweats +SoB and dry cough. Cough is nonproductive. Hasn't chagned much since covid. Intermittent headache since covid none at admission. Last remicade yesterday for Crohns. Medical History: Reviewed Medications: Reviewed Surgical History: Reviewed Allergies: Reviewed Social History: Quit tobacco 30 years ago. Drinks wine occasionally, none since May due to COVID. Code Status: Surrogate DM would be daughter Juliette Villavicenciotrom daughter [phone] or sister Shelli Garcia [phone]. Principal Diagnosis Pulmonary emboli Discharge Data Allergies Allergy/AdvReac Type Severity Reaction Status Date / Time losartan Allergy Intermediate RASH Verified 08/02/22 11:01 adhesive Allergy Mild SKIN Verified 08/02/22 11:01 IRRITATION Sulfa (Sulfonamide Allergy Unknown "CAN'T Verified 08/02/22 11:01 Antibiotics) REMEMBER" doxycycline Allergy nausea Verified 08/02/22 11:01 Consultations 08/02/22 17:00 ED Decision to Admit Stat Ordered Studies 08/02/22 13:59 CT angio chest PE protocol Stat Hospital Course (1) Pulmonary emboli: You were observed overnight at [facility] from August 02 - 2021 due to right sided chest pain and persistent cough. You were diagnosed with bilateral pulmonary emboli and treated with Eliquis. Recommend a total of 3 months of Eliquis for the pulmonary embolism. Please skip the first two doses of the starter pack as these were taken during your hospitalization. (2) Crohns disease: (3) Ex-smoker: (4) Anxiety: Discharge Plan Discharge Items Patient Disposition: Home - Self-Care Reason For Visit: PE, PNA, TROP Discharge Diagnosis: Pulmonary emboli Activity: Resume your previous activity Non-emergency contact: Primary Care Provider Call non-emergency contact if: you have any medication questions and your symptoms worsen Follow-up/Referrals: Haley Conteh MD [Primary Care Provider] - 08/11/22 11:30 am Diet: Regular Addtl Attending Provider Instructions: You were observed overnight at [facility] from August 02 - 2021 due to right sided chest pain and persistent cough. You were diagnosed with bilateral pulmonary emboli and treated with Eliquis. Recommend a total of 3 months of Eliquis for the pulmonary embolism. Please skip the first two doses of the starter pack as these were taken during your hospitalization. Pending Studies at Discharge: No Stand-Alone Forms: [facility], Smoking Cessation Medications and DC Order Prescriptions: New Eliquis 5 mg (74 tabs) tablets,dose pack 5 mg PO BID Qty: 74 0RF Rx Instructions: Please skip first 2 doses Continued Remicade 100 mg recon soln See Rx Instructions IV .COMPLEX Label Comments: 5 mg/kg IV Q8 Weeks; Rx Instructions: 5 mg/kg IV Q8 Weeks; potassium chloride 20 mEq tablet extended release 40 meq PO ONCE Qty: 2 0RF amlodipine 5 mg tablet 5 mg PO QPM Qty: 90 1RF hydrochlorothiazide 25 mg tablet 25 mg PO DAILY Qty: 90 1RF albuterol sulfate [ProAir HFA] 90 mcg/actuation HFA aerosol inhaler 2 inh inhalation Q6H PRN (Reason: shortness of breath or wheezing) Qty: 8.5 0RF Discharge Orders: Discharge Order (Routine); Ordered 08/03/22 Ordered By: Jeffy Pack/Other Patient Handouts: Pulmonary Embolism, Shortness Breath [employer], Pulmonary Embolism Dc Admission Data Admit Date/Time: 08/02/22 17:36 Attending Provider: Jeffy Rollins Admit Provider: Aj Katz Primary Care Provider: Haley Conteh Other Providers: Aj Katz Other Interventions: Discharge Summary Assessment (RN) Last Done: 08/03/22 14:41 Coding Diagnoses Pulmonary emboli I26.99 Crohns disease K50.90 Ex-smoker Z87.891 Anxiety F41.9
== END 2022-08-03 16:16 | disposition home or self-care (01) ==
LOC: ED 13:27 → 2W 13:27 → SUATTDRO 17:36 → 2W 19:51